=== PATIENT | male | born 1955 | race Caucasian/White ===

== ENCOUNTER 2017-10-12 17:21 | Inpatient (IN) | payer BC ==
[~2017-10-12] VITALS: Ht 185.4 cm; Wt 108.4 kg
[2017-10-12 17:33] VITALS: BP_SYST 130
[2017-10-12] MEDS ORDERED: ASPIRIN 81 MG TAB.CHEW PO ONE (18:00)
[2017-10-12 18:12] LABS: EOSINOPHILS # (AUTO) 0.2 K/uL (0.0-0.4); EOSINOPHILS % (AUTO) 3.8 % (0.0-4.0); HEMATOCRIT 41.7 % (36-54); LYMPHOCYTES # (AUTO) 1.9 K/uL (1.0-5.5); MEAN CORPUSCULAR HEMOGLOBIN 28 pg (27-31); MEAN CORPUSCULAR HGB CONC 31 % (32-36); MEAN CORPUSCULAR VOLUME 88 fL (79.0-98.0); MONOCYTES # (AUTO) 0.6 K/uL (0.0-1.0); MONOCYTES % (AUTO) 10.3 % (1.7-9.3); NEUTROPHILS % (AUTO) 54.7 % (40.0-70.0); PLATELET COUNT (AUTO) 230 K/uL (130-430); RED BLOOD CELL COUNT(AUTO) 4.72 MIL/uL (4.2-6.2); RED CELL DISTRIBUTION WIDTH 12.4 % (9.0-15.0)
[2017-10-12 18:13] LABS: BASOPHILS % (AUTO) 0.2 % (0.0-2.0); NEUTROPHILS # (AUTO) 3.3 K/uL (1.8-7.7)
[2017-10-12] MEDS ORDERED: NACL 0.9% 1,000 ML IV ONE (18:15)
[2017-10-12] MEDS ORDERED: MORPHINE 4 MG/ML INJ. SYRINGE IVP ONE (18:15)
[2017-10-12 18:21] LABS: ALBUMIN 3.8 g/dL (3.4-4.8); CALCIUM 9.5 mg/dL (8.4-11.0); CREATININE 1.27 mg/dL (0.55-1.30); POTASSIUM 4.2 mmol/L (3.5-5.1); TOTAL BILIRUBIN 0.4 mg/dL (0.0-1.0)
[2017-10-12] MEDS ORDERED: IOHEXOL 350 mgI/mL, 150 ML INFUS..BTL IV ONE (18:44)
[2017-10-12 18:48] LABS: CKMB RELATIVE INDEX 0.8 (0.0-2.9); CREATINE KINASE MB 2.5 ng/mL (0-3.6)
[2017-10-12 19:16] LABS: INR 0.9 (0.80-1.20); PROTHROMBIN TIME 9.6 SECS (9.5-12.5)
[2017-10-12] MEDS ORDERED: LEVO112T5 PO (19:19)
[2017-10-12] MEDS ORDERED: LOVI30 SQ (19:20)
[2017-10-12] MEDS ORDERED: ACETAMINOPHEN 325 MG TABLET PO PRN (21:30)
[2017-10-12] MEDS ORDERED: POTASSIUM CHLORIDE 20 MEQ TAB.PRT.SR PO PRN (21:30)
[2017-10-12] MEDS ORDERED: ZOLPIDEM TARTRATE 5 MG TABLET PO PRN (21:30)
[2017-10-12] MEDS ORDERED: *LOVENOX 1MG/KG Q12H/PHARMACY XX ONE (21:30)
[2017-10-12] MEDS ORDERED: MORPHINE 2 MG/ML INJ. SYRINGE IVP PRN ×2 (21:30)
[2017-10-12] MEDS ORDERED: LORazepam 2 MG/ML VIAL IVP PRN (21:30)
[2017-10-12] MEDS ORDERED: MUPIROCIN 2% TOPICAL OINTMENT 22 GM NS PRN (21:30)
[2017-10-12] MEDS ORDERED: DOCUSATE SODIUM 100 MG CAPSULE PO PRN (21:30)
[2017-10-12] MEDS ORDERED: MAGNESIUM SULFATE 50 ML IV PRN (21:30)
[2017-10-12 21:40] VITALS: BP_SYST 101
[2017-10-12] MEDS: NACL 0.9% 1,000 ML IV SCH (22:29)
[2017-10-12] MEDS ORDERED: MORPHINE 4 MG/ML INJ. SYRINGE IVP PRN (23:30)
[2017-10-12] MEDS: MORPHINE 4 MG/ML INJ. SYRINGE IVP PRN (23:52)
[2017-10-13] VITALS (7 sets, daily range): BP systolic 101–113
[2017-10-13] MEDS: NACL 0.9% 1,000 ML IV SCH (06:32)
[2017-10-13 06:42] LABS: CALCIUM 8.8 mg/dL (8.4-11.0); CREATININE 1.06 mg/dL (0.55-1.30); POTASSIUM 4.5 mmol/L (3.5-5.1)
[2017-10-13 07:41] LABS: BASOPHILS % (AUTO) 0.6 % (0.0-2.0); EOSINOPHILS # (AUTO) 0.2 K/uL (0.0-0.4); EOSINOPHILS % (AUTO) 4.3 % (0.0-4.0); HEMATOCRIT 38.8 % (36-54); HEMOGLOBIN 13.3 g/dL (14.0-18.0); LYMPHOCYTES # (AUTO) 1.5 K/uL (1.0-5.5); LYMPHOCYTES % (AUTO) 30.2 % (20.5-51.5); MEAN CORPUSCULAR HEMOGLOBIN 30 pg (27-31); MEAN CORPUSCULAR HGB CONC 34 % (32-36); MEAN CORPUSCULAR VOLUME 88 fL (79.0-98.0); MONOCYTES # (AUTO) 0.5 K/uL (0.0-1.0); MONOCYTES % (AUTO) 10.6 % (1.7-9.3); NEUTROPHILS # (AUTO) 2.6 K/uL (1.8-7.7); NEUTROPHILS % (AUTO) 54.3 % (40.0-70.0); PLATELET COUNT (AUTO) 213 K/uL (130-430); RED BLOOD CELL COUNT(AUTO) 4.39 MIL/uL (4.2-6.2); RED CELL DISTRIBUTION WIDTH 12.8 % (9.0-15.0); WHITE BLOOD COUNT (AUTO) 4.8 K/uL (4.8-10.8)
[2017-10-13] MEDS: ENOXAPARIN SODIUM 100 MG/ML SYRINGE SUBCUT SCH ×2 (09:38→20:40)
[2017-10-13] MEDS: oxyCODONE HCL 10 MG TAB.ER.12H PO SCH ×2 (09:38→20:40)
[2017-10-13] MEDS: LEVOTHYROXINE SODIUM 0.112 MG TABLET PO SCH (09:38)
[2017-10-13] MEDS: LEVOFLOXACIN 500 MG/D5W 100 ML IV SCH (10:32)
[2017-10-13] MEDS: ONDANSETRON HCL 4 MG/2 ML VIAL IVP PRN (20:40)
[2017-10-13] MEDS: MORPHINE 4 MG/ML INJ. SYRINGE IVP PRN (21:58)
[2017-10-14 07:06] LABS: BASOPHILS % (AUTO) 0.4 % (0.0-2.0); EOSINOPHILS # (AUTO) 0.3 K/uL (0.0-0.4); EOSINOPHILS % (AUTO) 3.7 % (0.0-4.0); HEMATOCRIT 40.1 % (36-54); HEMOGLOBIN 13.4 g/dL (14.0-18.0); LYMPHOCYTES # (AUTO) 1.6 K/uL (1.0-5.5); MEAN CORPUSCULAR HEMOGLOBIN 30 pg (27-31); MEAN CORPUSCULAR HGB CONC 34 % (32-36); MEAN CORPUSCULAR VOLUME 89 fL (79.0-98.0); MONOCYTES # (AUTO) 0.7 K/uL (0.0-1.0); MONOCYTES % (AUTO) 10.6 % (1.7-9.3); NEUTROPHILS # (AUTO) 4.2 K/uL (1.8-7.7); NEUTROPHILS % (AUTO) 61.3 % (40.0-70.0); PLATELET COUNT (AUTO) 240 K/uL (130-430); RED CELL DISTRIBUTION WIDTH 12.8 % (9.0-15.0); WHITE BLOOD COUNT (AUTO) 6.9 K/uL (4.8-10.8)
[2017-10-14 07:16] LABS: CALCIUM 9.6 mg/dL (8.4-11.0); CREATININE 1.15 mg/dL (0.55-1.30); POTASSIUM 5.4 mmol/L (3.5-5.1)
[2017-10-14 07:35] VITALS: BP_SYST 103
[2017-10-14] MEDS ORDERED: REGADENOSON 0.4 MG/5 ML SYRINGE IVP ONE (09:00)
[2017-10-14] MEDS ORDERED: ENOXAPARIN SODIUM 40 MG/0.4 ML SYRINGE SUBCUT SCH (09:00)
[2017-10-14] MEDS: LEVOTHYROXINE SODIUM 0.112 MG TABLET PO SCH (09:40)
[2017-10-14] MEDS: oxyCODONE HCL 10 MG TAB.ER.12H PO SCH (09:41)
[2017-10-14] MEDS: ONDANSETRON HCL 4 MG/2 ML VIAL IVP PRN (09:42)
[2017-10-14] MEDS: LEVOFLOXACIN 500 MG/D5W 100 ML IV SCH (09:47)
[2017-10-14] MEDS: MORPHINE 4 MG/ML INJ. SYRINGE IVP PRN (12:32)
[2017-10-14 13:03] VITALS: BP_SYST 99
[2017-10-14] MEDS ORDERED: LEVO500T20 PO (16:18)
[2017-10-14 16:41] VITALS: BP_SYST 93
[2017-10-14 17:14] VITALS: BP_SYST 104
== END 2017-10-14 18:35 | disposition home or self-care (01) | DRG 205 ==
LOC: SED 17:21 → STU 20:53
PROVIDERS: ADMIT General Practice; ATTEND General Practice
DX: M94.0 Chondrocostal junction syndrome [Tietze] (principal); J18.9 Pneumonia, unspecified organism; F11.20 Opioid dependence, uncomplicated; E66.01 Morbid (severe) obesity due to excess calories; E03.9 Hypothyroidism, unspecified; E78.5 Hyperlipidemia, unspecified; G89.4 Chronic pain syndrome; G47.33 Obstructive sleep apnea (adult) (pediatric); R91.8 Other nonspecific abnormal finding of lung field; Z98.84 Bariatric surgery status; Z86.718 Personal history of other venous thrombosis and embolism; Z79.899 Other long term (current) drug therapy; Z68.31 Body mass index [BMI] 31.0-31.9, adult
CPT/HCPCS: 36415; 71260-TC; 80048; 80053; 80061; 82550-TC; 82553-TC; 83735-TC; 84443-TC; 84484; 85025; 85610-TC; 85730-TC; 87081; 93005; 93017; 93306; 93970; 96361; 96374; 99285; A9500; J1650; J1956; J2270; J2405; J2785; J7030; Q9967

== ENCOUNTER 2018-01-08 19:02 | Emergency (ER) | payer BC ==
[~2018-01-08] VITALS: Ht 185.4 cm; Wt 102.1 kg
[~2018-01-08 19:02] MED LIST: LEVO112T5 PO; LEVO500T20 PO
[2018-01-08 19:10] VITALS: BP_SYST 129
[2018-01-08] MEDS ORDERED: NACL 0.9% 1,000 ML IV ONE (19:39)
[2018-01-08 20:09] LABS: BASOPHILS % (AUTO) 0.6 % (0.0-2.0); EOSINOPHILS # (AUTO) 0.1 K/uL (0.0-0.4); EOSINOPHILS % (AUTO) 1.4 % (0.0-4.0); HEMATOCRIT 40.5 % (36-54); HEMOGLOBIN 13.3 g/dL (14.0-18.0); LYMPHOCYTES # (AUTO) 1.8 K/uL (1.0-5.5); MEAN CORPUSCULAR HEMOGLOBIN 29 pg (27-31); MEAN CORPUSCULAR HGB CONC 33 % (32-36); MEAN CORPUSCULAR VOLUME 89 fL (79.0-98.0); MONOCYTES # (AUTO) 0.6 K/uL (0.0-1.0); MONOCYTES % (AUTO) 9.2 % (1.7-9.3); NEUTROPHILS # (AUTO) 3.8 K/uL (1.8-7.7); NEUTROPHILS % (AUTO) 59.8 % (40.0-70.0); PLATELET COUNT (AUTO) 196 K/uL (130-430); RED BLOOD CELL COUNT(AUTO) 4.53 MIL/uL (4.2-6.2); WHITE BLOOD COUNT (AUTO) 6.3 K/uL (4.8-10.8)
[2018-01-08 20:13] LABS: CALCIUM 9.5 mg/dL (8.4-11.0); CREATININE 1.03 mg/dL (0.55-1.30); POTASSIUM 5.1 mmol/L (3.5-5.1)
[2018-01-08 20:16] LABS: INR 0.9 (0.80-1.20); PROTHROMBIN TIME 9.6 SECS (9.5-12.5)
[2018-01-08 20:18] LABS: TOTAL BILIRUBIN 0.4 mg/dL (0.0-1.0)
[2018-01-08 20:50] LABS: BILIRUBIN,URINE NEGATIVE (NEGATIVE); BLOOD, URINE NEGATIVE (NEGATIVE); CLARITY/URINE CLEAR (CLEAR); COLOR,URINE YELLOW (YELLOW); GLUCOSE,URINE NEGATIVE (NEGATIVE); KETONES,URINE NEGATIVE (NEGATIVE); LEUKOCYTE ESTERASE ,URINE NEGATIVE (NEGATIVE); NITRITE, URINE NEGATIVE (NEGATIVE); PROTEIN URINE NEGATIVE (NEGATIVE); UROBILINOGEN,URINE 0.2 (0.2-1.0)
[2018-01-08] MEDS ORDERED: OXYC10TA71 PO (21:13)
[2018-01-08] MEDS ORDERED: LEVO125T PO (21:13)
[2018-01-08] MEDS ORDERED: IBUP-1480 PO (21:13)
[2018-01-08] MEDS ORDERED: MODA100T5 PO (21:13)
[2018-01-08 22:10] VITALS: BP_SYST 126
== END 2018-01-08 22:10 | disposition home or self-care (01) ==
LOC: SED 19:02
DX: S83.91XA Sprain of unspecified site of right knee, initial encounter (principal); R60.0 Localized edema; E03.9 Hypothyroidism, unspecified; Z86.718 Personal history of other venous thrombosis and embolism; Z90.49 Acquired absence of other specified parts of digestive tract; Z85.118 Personal history of other malignant neoplasm of bronchus and lung; Z79.899 Other long term (current) drug therapy; X58.XXXA Exposure to other specified factors, initial encounter; Y93.89 Activity, other specified; Y92.89 Other specified places as the place of occurrence of the external cause; Y99.8 Other external cause status
CPT/HCPCS: 29505; 36415; 73564; 80053; 81003; 85025; 85610; 85730; 93971; 99285; J7030

== ENCOUNTER 2021-08-07 20:05 | Inpatient (IN) | payer BC, SELFPAY ==
[~2021-08-07] VITALS: Ht 185.4 cm; Wt 76.2 kg
[~2021-08-07 20:05] MED LIST changes: +IBUP-1970 PO; +LEVO125T PO; -LEVO500T20 PO; +MODA100T53 PO; +OXYC10TA56 PO
[2021-08-07 20:13] VITALS: BP_SYST 89
[2021-08-07] MEDS ORDERED: NACL 0.9% 1,000 ML IV ONE (20:30)
[2021-08-07] MEDS ORDERED: ONDANSETRON HCL 4 MG/2 ML VIAL IVP ONE ×3 (20:30→23:00)
[2021-08-07] MEDS ORDERED: PANTOPRAZOLE SODIUM 40 MG/VIAL (PROTONIX) IVP ONE (20:30)
[2021-08-07] MEDS ORDERED: fentaNYL CITRATE/PF 100 MCG/2 ML AMP IVP ONE (20:30)
[2021-08-07 20:58] LABS: BASOPHILS # (AUTO) 0.1 K/uL (0.0-0.2); BASOPHILS % (AUTO) 1.3 % (0.0-2.0); EOSINOPHILS # (AUTO) 0.1 K/uL (0.0-0.4); EOSINOPHILS % (AUTO) 0.5 % (0.0-4.0); HEMATOCRIT 37.6 % (36-54); HEMOGLOBIN 12.4 g/dL (14.0-18.0); LYMPHOCYTES # (AUTO) 1.6 K/uL (1.0-5.5); LYMPHOCYTES % (AUTO) 14.5 % (20.5-51.5); MEAN CORPUSCULAR HEMOGLOBIN 30 pg (27-31); MEAN CORPUSCULAR HGB CONC 33 % (32-36); MEAN CORPUSCULAR VOLUME 92 fL (79.0-98.0); MONOCYTES # (AUTO) 0.5 K/uL (0.0-1.0); MONOCYTES % (AUTO) 4.3 % (1.7-9.3); NEUTROPHILS # (AUTO) 8.7 K/uL (1.8-7.7); NEUTROPHILS % (AUTO) 79.4 % (40.0-70.0); PLATELET COUNT (AUTO) 189 K/uL (130-430); RED BLOOD CELL COUNT(AUTO) 4.09 MIL/uL (4.2-6.2); WHITE BLOOD COUNT (AUTO) 10.9 K/uL (4.8-10.8)
[2021-08-07 21:13] LABS: CALCIUM 8.7 mg/dL (8.4-11.0); CREATININE 0.95 mg/dL (0.55-1.30); POTASSIUM 3.8 mmol/L (3.5-5.1)
[2021-08-07 21:24] LABS: ALBUMIN 3.6 g/dL (3.4-4.8); TOTAL BILIRUBIN 0.5 mg/dL (0.0-1.0)
[2021-08-07] MEDS ORDERED: MORPHINE 4 MG INJ. 4 MG/ML VIAL IVP ONE (21:45)
[2021-08-07] MEDS ORDERED: LORazepam 2 MG/ML VIAL IVP ONE (22:30)
[2021-08-07] MEDS ORDERED: PROCHLORPERAZINE EDISYLATE 10 MG/2 ML VIAL IVP ONE (23:00)
[2021-08-08] VITALS (7 sets, daily range): BP systolic 105–120
[2021-08-08] MEDS: D5/0.45 NS 1,000 ML IV SCH ×4 (01:00→21:40)
[2021-08-08] MEDS ORDERED: ONDANSETRON HCL 4 MG/2 ML VIAL IM PRN (05:45)
[2021-08-08] MEDS ORDERED: MORPHINE 2 MG/ML INJ. SYRINGE IVP PRN (05:45)
[2021-08-08] MEDS ORDERED: MORPHINE 2 MG/ML INJ. SYRINGE ONE (06:30)
[2021-08-08] MEDS ORDERED: ONDANSETRON HCL 4 MG/2 ML VIAL IVP PRN (07:00)
[2021-08-08 07:01] LABS: BASOPHILS % (AUTO) 0.2 % (0.0-2.0); HEMATOCRIT 38.4 % (36-54); HEMOGLOBIN 12.7 g/dL (14.0-18.0); LYMPHOCYTES # (AUTO) 0.5 K/uL (1.0-5.5); LYMPHOCYTES % (AUTO) 4.9 % (20.5-51.5); MEAN CORPUSCULAR HEMOGLOBIN 31 pg (27-31); MEAN CORPUSCULAR HGB CONC 33 % (32-36); MEAN CORPUSCULAR VOLUME 93 fL (79.0-98.0); MONOCYTES # (AUTO) 0.2 K/uL (0.0-1.0); MONOCYTES % (AUTO) 2.5 % (1.7-9.3); NEUTROPHILS # (AUTO) 8.6 K/uL (1.8-7.7); NEUTROPHILS % (AUTO) 92.4 % (40.0-70.0); PLATELET COUNT (AUTO) 182 K/uL (130-430); RED BLOOD CELL COUNT(AUTO) 4.15 MIL/uL (4.2-6.2); WHITE BLOOD COUNT (AUTO) 9.3 K/uL (4.8-10.8)
[2021-08-08 07:06] LABS: CALCIUM 8.8 mg/dL (8.4-11.0); CREATININE 0.94 mg/dL (0.55-1.30); POTASSIUM 3.8 mmol/L (3.5-5.1)
[2021-08-08 07:12] LABS: ALBUMIN 3.6 g/dL (3.4-4.8); TOTAL BILIRUBIN 0.5 mg/dL (0.0-1.0)
[2021-08-08] MEDS ORDERED: ACETAMINOPHEN 325 MG TABLET PO PRN (09:30)
[2021-08-08] MEDS ORDERED: HYDROmorphone 1 MG/ML INJ. CARTRIDGE IVP PRN (09:30)
[2021-08-08] MEDS: HYDROmorphone 2 MG/ML VIAL IVP PRN ×4 (11:17→23:49)
[2021-08-08] MEDS ORDERED: GASTROGRAFIN 120 ML ONE (14:12)
[2021-08-08] MEDS: ONDANSETRON HCL 4 MG/2 ML VIAL IVP PRN ×2 (15:36→23:53)
[2021-08-08] MEDS: METOCLOPRAMIDE HCL 10 MG/2 ML VIAL IVP PRN (19:55)
[2021-08-09] VITALS (9 sets, daily range): BP systolic 102–141
[2021-08-09] MEDS: HYDROmorphone 2 MG/ML VIAL IVP PRN ×3 (04:03→21:45)
[2021-08-09] MEDS: METOCLOPRAMIDE HCL 10 MG/2 ML VIAL IVP PRN (04:13)
[2021-08-09 07:13] LABS: BASOPHILS % (AUTO) 0.2 % (0.0-2.0); HEMATOCRIT 41.3 % (36-54); HEMOGLOBIN 13.6 g/dL (14.0-18.0); LYMPHOCYTES % (AUTO) 7.9 % (20.5-51.5); MEAN CORPUSCULAR HEMOGLOBIN 31 pg (27-31); MEAN CORPUSCULAR HGB CONC 33 % (32-36); MEAN CORPUSCULAR VOLUME 92 fL (79.0-98.0); MONOCYTES # (AUTO) 0.6 K/uL (0.0-1.0); MONOCYTES % (AUTO) 4.7 % (1.7-9.3); NEUTROPHILS # (AUTO) 10.9 K/uL (1.8-7.7); NEUTROPHILS % (AUTO) 87.2 % (40.0-70.0); PLATELET COUNT (AUTO) 203 K/uL (130-430); RED BLOOD CELL COUNT(AUTO) 4.47 MIL/uL (4.2-6.2); RED CELL DISTRIBUTION WIDTH 13.8 % (9.0-15.0); WHITE BLOOD COUNT (AUTO) 12.5 K/uL (4.8-10.8)
[2021-08-09 07:44] LABS: ALBUMIN 3.6 g/dL (3.4-4.8); CALCIUM 9.2 mg/dL (8.4-11.0); CREATININE 1.02 mg/dL (0.55-1.30); PHOSPHORUS 4.6 mg/dL (2.7-4.5); TOTAL BILIRUBIN 0.1 mg/dL (0.0-1.0)
[2021-08-09] MEDS: D5/0.45 NS 1,000 ML IV SCH (08:51)
[2021-08-09] MEDS ORDERED: NS 500 ML IV ONE (10:45)
[2021-08-09] MEDS: HYDROmorphone 1 MG/ML INJ. CARTRIDGE IVP PRN ×3 (12:49→20:21)
[2021-08-09 15:29] LABS: BILIRUBIN,URINE NEGATIVE (NEGATIVE); BLOOD, URINE NEGATIVE (NEGATIVE); CLARITY/URINE CLEAR (CLEAR); GLUCOSE,URINE NEGATIVE (NEGATIVE); KETONES,URINE NEGATIVE (NEGATIVE); NITRITE, URINE NEGATIVE (NEGATIVE); PROTEIN URINE TRACE (NEGATIVE); UROBILINOGEN,URINE 0.2 (0.2-1.0)
[2021-08-09 15:40] LABS: COLOR,URINE AMBER (YELLOW); LEUKOCYTE ESTERASE ,URINE TRACE (NEGATIVE)
[2021-08-09 15:41] LABS: BACTERIA,URINE FEW /HPF (None Seen); RBC,URINE NONE SEEN /HPF (0-3)
[2021-08-09 15:42] LABS: MUCUS,URINE 1+ /LPF (None Seen)
[2021-08-09] MEDS ORDERED: PROPOFOL 200MG/ 20ML VIAL (DIPRIVAN) IV ONE ×2 (17:10→21:45)
[2021-08-09] MEDS ORDERED: NS 1000 ML IV.SOLN IV ONE (17:10)
[2021-08-09] MEDS ORDERED: MIDAZOLAM HCL 5 MG/5 ML VIAL ONE (17:10)
[2021-08-09] MEDS ORDERED: fentaNYL CITRATE 250 MCG/5 ML AMP ONE (17:10)
[2021-08-09] MEDS ORDERED: ROCURONIUM BROMIDE 10 MG/ML (ZEMURON) ONE (17:10)
[2021-08-09] MEDS ORDERED: CEFAZOLIN 2 GM IVPB PREMIX 50 ML IV ONE (17:10)
[2021-08-09] MEDS ORDERED: NS IRRIG SOLN 1000 ML IR ONE (17:10)
[2021-08-09] MEDS ORDERED: SEVOFLURANE 15 MIN GAS INH ONE (17:10)
[2021-08-09] MEDS ORDERED: NALOXONE HCL 0.4 MG/ML AMP (NARCAN) IVP PRN (18:45)
[2021-08-09] MEDS ORDERED: ONDANSETRON HCL 4 MG/2 ML VIAL IVP PRN (18:45)
[2021-08-09] MEDS ORDERED: METOCLOPRAMIDE HCL 10 MG/2 ML VIAL IVP PRN (18:45)
[2021-08-09] MEDS ORDERED: HYDROmorphone 2 MG/ML VIAL ONE (20:10)
[2021-08-09] MEDS ORDERED: PROPOFOL DRIP 100 ML IV ONE ×2 (20:26→23:12)
[2021-08-09] MEDS: ONDANSETRON HCL 4 MG/2 ML VIAL IVP PRN (21:18)
[2021-08-09] MEDS ORDERED: PIPERACILLIN/TAZOBACTAM 4.5 GM/VIAL (ZOSYN) IV ONE (21:24)
[2021-08-09] MEDS: PIPERACILLIN/TAZO 4.5GM/DEX-IS 100 ML IV SCH (21:50)
[2021-08-10] VITALS (21 sets, daily range): BP systolic 90–110
[2021-08-10] MEDS: D5/0.45 NS 1,000 ML IV SCH ×4 (00:17→23:57)
[2021-08-10] MEDS: PROPOFOL DRIP 100 ML IV PRN ×2 (00:19→04:54)
[2021-08-10] MEDS: HYDROmorphone 1 MG/ML INJ. CARTRIDGE IVP PRN ×3 (02:40→14:04)
[2021-08-10] MEDS: PIPERACILLIN/TAZO 4.5GM/DEX-IS 100 ML IV SCH ×3 (06:24→21:02)
[2021-08-10] MEDS: HYDROmorphone 2 MG/ML VIAL IVP PRN ×5 (06:25→20:55)
[2021-08-10 06:33] LABS: BASOPHILS % (AUTO) 0.1 % (0.0-2.0); EOSINOPHILS % (AUTO) 0.1 % (0.0-4.0); HEMATOCRIT 37.7 % (36-54); HEMOGLOBIN 12.5 g/dL (14.0-18.0); LYMPHOCYTES # (AUTO) 0.9 K/uL (1.0-5.5); LYMPHOCYTES % (AUTO) 8.5 % (20.5-51.5); MEAN CORPUSCULAR HEMOGLOBIN 31 pg (27-31); MEAN CORPUSCULAR HGB CONC 33 % (32-36); MEAN CORPUSCULAR VOLUME 93 fL (79.0-98.0); MONOCYTES # (AUTO) 1.2 K/uL (0.0-1.0); MONOCYTES % (AUTO) 11.8 % (1.7-9.3); NEUTROPHILS % (AUTO) 79.5 % (40.0-70.0); PLATELET COUNT (AUTO) 159 K/uL (130-430); RED BLOOD CELL COUNT(AUTO) 4.07 MIL/uL (4.2-6.2); RED CELL DISTRIBUTION WIDTH 14.2 % (9.0-15.0)
[2021-08-10 06:41] LABS: CALCIUM 7.5 mg/dL (8.4-11.0); CREATININE 0.7 mg/dL (0.55-1.30); POTASSIUM 4.1 mmol/L (3.5-5.1)
[2021-08-10 15:52] LABS: PROTHROMBIN TIME 10.1 SECS (9.5-12.5)
[2021-08-10] MEDS: ENOXAPARIN SODIUM 30 MG/0.3 ML SYRINGE SUBCUT SCH (20:56)
[2021-08-11] VITALS (15 sets, daily range): BP systolic 86–109
[2021-08-11] MEDS: HYDROmorphone 2 MG/ML VIAL IVP PRN ×7 (03:56→23:02)
[2021-08-11] MEDS: PIPERACILLIN/TAZO 4.5GM/DEX-IS 100 ML IV SCH ×3 (06:08→21:33)
[2021-08-11 06:34] LABS: BASOPHILS % (AUTO) 0.4 % (0.0-2.0); EOSINOPHILS # (AUTO) 0.1 K/uL (0.0-0.4); HEMOGLOBIN 11.4 g/dL (14.0-18.0); LYMPHOCYTES # (AUTO) 1.2 K/uL (1.0-5.5); LYMPHOCYTES % (AUTO) 13.6 % (20.5-51.5); MEAN CORPUSCULAR HEMOGLOBIN 31 pg (27-31); MEAN CORPUSCULAR HGB CONC 33 % (32-36); MEAN CORPUSCULAR VOLUME 93 fL (79.0-98.0); NEUTROPHILS # (AUTO) 6.2 K/uL (1.8-7.7); PLATELET COUNT (AUTO) 130 K/uL (130-430); RED BLOOD CELL COUNT(AUTO) 3.67 MIL/uL (4.2-6.2); RED CELL DISTRIBUTION WIDTH 13.9 % (9.0-15.0); WHITE BLOOD COUNT (AUTO) 8.5 K/uL (4.8-10.8)
[2021-08-11 07:04] LABS: CALCIUM 7.7 mg/dL (8.4-11.0); CREATININE 0.65 mg/dL (0.55-1.30); POTASSIUM 3.9 mmol/L (3.5-5.1)
[2021-08-11 07:25] LABS: C-REACTIVE PROTEIN QUANT 15.1 mg/dL (0-0.5)
[2021-08-11] MEDS ORDERED: IPRATROPIUM/ALBUTEROL SULFATE 3 ML AMPUL.NEB (DUONEB) ONE ×2 (07:53→11:45)
[2021-08-11] MEDS ORDERED: *PPN PER PHARMACY XX PRN (08:00)
[2021-08-11 08:59] LABS: ERYTHROCYTE SEDIMENTATION RATE 18 MM/HR (0-15)
[2021-08-11 10:14] LABS: ALBUMIN 2.2 g/dL (3.4-4.8); BILIRUBIN,DIRECT 0.4 mg/dL (0.0-0.3); TOTAL BILIRUBIN 0.6 mg/dL (0.0-1.0)
[2021-08-11] MEDS: D5/0.45 NS 1,000 ML IV SCH ×2 (12:51→21:34)
[2021-08-11] MEDS: IPRATROPIUM/ALBUTEROL SULFATE 3 ML AMPUL.NEB (DUONEB) INH SCH ×2 (19:44→22:11)
[2021-08-11] MEDS ORDERED: [UNRECOGNIZED DRUG - OTHER] IV SCH ×7 (21:00)
[2021-08-11] MEDS ORDERED: POTASSIUM CHLORIDE IV SCH ×7 (21:00)
[2021-08-11] MEDS ORDERED: TPN PERIPHERAL IV SCH ×7 (21:00)
[2021-08-11] MEDS ORDERED: SODIUM CHLORIDE IV SCH ×7 (21:00)
[2021-08-11] MEDS: ENOXAPARIN SODIUM 30 MG/0.3 ML SYRINGE SUBCUT SCH (21:44)
[2021-08-12 00:51] VITALS: BP_SYST 105
[2021-08-12] MEDS: HYDROmorphone 2 MG/ML VIAL IVP PRN ×7 (02:24→18:36)
[2021-08-12] MEDS: IPRATROPIUM/ALBUTEROL SULFATE 3 ML AMPUL.NEB (DUONEB) INH SCH ×6 (03:00→23:44)
[2021-08-12] MEDS: PIPERACILLIN/TAZO 4.5GM/DEX-IS 100 ML IV SCH ×3 (06:30→21:31)
[2021-08-12 06:35] LABS: BASOPHILS % (AUTO) 0.3 % (0.0-2.0); EOSINOPHILS # (AUTO) 0.1 K/uL (0.0-0.4); EOSINOPHILS % (AUTO) 2.4 % (0.0-4.0); HEMATOCRIT 31.5 % (36-54); HEMOGLOBIN 10.5 g/dL (14.0-18.0); LYMPHOCYTES # (AUTO) 0.8 K/uL (1.0-5.5); MEAN CORPUSCULAR HEMOGLOBIN 31 pg (27-31); MEAN CORPUSCULAR HGB CONC 33 % (32-36); MEAN CORPUSCULAR VOLUME 92 fL (79.0-98.0); MONOCYTES # (AUTO) 0.6 K/uL (0.0-1.0); MONOCYTES % (AUTO) 9.8 % (1.7-9.3); NEUTROPHILS # (AUTO) 4.4 K/uL (1.8-7.7); NEUTROPHILS % (AUTO) 73.5 % (40.0-70.0); PLATELET COUNT (AUTO) 136 K/uL (130-430); RED BLOOD CELL COUNT(AUTO) 3.41 MIL/uL (4.2-6.2); RED CELL DISTRIBUTION WIDTH 13.8 % (9.0-15.0); WHITE BLOOD COUNT (AUTO) 5.9 K/uL (4.8-10.8)
[2021-08-12 07:26] LABS: INR 0.9 (0.80-1.20); PROTHROMBIN TIME 9.1 SECS (9.5-12.5)
[2021-08-12 07:41] LABS: C-REACTIVE PROTEIN QUANT 9.3 mg/dL (0-0.5); CALCIUM 7.1 mg/dL (8.4-11.0); CREATININE 0.57 mg/dL (0.55-1.30); PHOSPHORUS 2.6 mg/dL (2.7-4.5); POTASSIUM 3.5 mmol/L (3.5-5.1); TOTAL BILIRUBIN 0.5 mg/dL (0.0-1.0)
[2021-08-12 07:51] LABS: BILIRUBIN,URINE NEGATIVE (NEGATIVE); BLOOD, URINE 3+ (NEGATIVE); GLUCOSE,URINE NEGATIVE (NEGATIVE); KETONES,URINE TRACE (NEGATIVE); LEUKOCYTE ESTERASE ,URINE NEGATIVE (NEGATIVE); NITRITE, URINE NEGATIVE (NEGATIVE); PROTEIN URINE 1+ (NEGATIVE)
[2021-08-12 07:58] LABS: CLARITY/URINE SLIGHTLY HAZY (CLEAR); COLOR,URINE AMBER (YELLOW)
[2021-08-12 08:00] VITALS: BP_SYST 116
[2021-08-12 08:51] LABS: BACTERIA,URINE FEW /HPF (None Seen); WBC,URINE 0-3 /HPF (0-3)
[2021-08-12 09:25] LABS: ERYTHROCYTE SEDIMENTATION RATE 18 MM/HR (0-15)
[2021-08-12 11:33] VITALS: BP_SYST 110
[2021-08-12] MEDS: D5/0.45 NS 1,000 ML IV SCH (12:29)
[2021-08-12] MEDS: METOCLOPRAMIDE HCL 10 MG/2 ML VIAL IVP PRN (12:31)
[2021-08-12 16:35] VITALS: BP_SYST 110
[2021-08-12 16:45] VITALS: BP_SYST 112
[2021-08-12 20:00] VITALS: BP_SYST 100
[2021-08-12] MEDS ORDERED: [UNRECOGNIZED DRUG - OTHER] IV SCH ×9 (21:00)
[2021-08-12] MEDS ORDERED: POTASSIUM CHLORIDE IV SCH ×9 (21:00)
[2021-08-12] MEDS ORDERED: TPN PERIPHERAL IV SCH ×9 (21:00)
[2021-08-12] MEDS ORDERED: SODIUM CHLORIDE IV SCH ×9 (21:00)
[2021-08-12] MEDS: ENOXAPARIN SODIUM 30 MG/0.3 ML SYRINGE SUBCUT SCH (21:28)
[2021-08-12] MEDS: HYDROmorphone 1 MG/ML INJ. CARTRIDGE IVP PRN (21:31)
[2021-08-13] VITALS: BP_SYST 109
[2021-08-13] MEDS: HYDROmorphone 2 MG/ML VIAL IVP PRN ×10 (00:05→23:44)
[2021-08-13] MEDS: IPRATROPIUM/ALBUTEROL SULFATE 3 ML AMPUL.NEB (DUONEB) INH SCH ×6 (03:00→23:00)
[2021-08-13] MEDS: D5/0.45 NS 1,000 ML IV SCH ×2 (06:44→23:49)
[2021-08-13] MEDS: PIPERACILLIN/TAZO 4.5GM/DEX-IS 100 ML IV SCH ×3 (06:44→22:32)
[2021-08-13 08:00] VITALS: BP_SYST 114
[2021-08-13 08:30] LABS: ALBUMIN 2.3 g/dL (3.4-4.8); CALCIUM 7.4 mg/dL (8.4-11.0); CREATININE 0.62 mg/dL (0.55-1.30); PHOSPHORUS 3.4 mg/dL (2.7-4.5); POTASSIUM 3.9 mmol/L (3.5-5.1); TOTAL BILIRUBIN 0.3 mg/dL (0.0-1.0)
[2021-08-13 12:00] VITALS: BP_SYST 113
[2021-08-13 16:00] VITALS: BP_SYST 113
[2021-08-13 20:00] VITALS: BP_SYST 120; BP_SYST 126
[2021-08-13] MEDS ORDERED: [UNRECOGNIZED DRUG - OTHER] IV SCH ×9 (21:00)
[2021-08-13] MEDS ORDERED: TPN PERIPHERAL IV SCH ×9 (21:00)
[2021-08-13] MEDS ORDERED: SODIUM CHLORIDE IV SCH ×9 (21:00)
[2021-08-13] MEDS ORDERED: POTASSIUM CHLORIDE IV SCH ×9 (21:00)
[2021-08-13] MEDS: ENOXAPARIN SODIUM 30 MG/0.3 ML SYRINGE SUBCUT SCH (22:31)
[2021-08-13] MEDS: FAT EMULSIONS 250 ML IV SCH (23:53)
[2021-08-14] VITALS: BP_SYST 120
[2021-08-14] MEDS: IPRATROPIUM/ALBUTEROL SULFATE 3 ML AMPUL.NEB (DUONEB) INH SCH ×6 (03:00→23:40)
[2021-08-14] MEDS: HYDROmorphone 2 MG/ML VIAL IVP PRN ×4 (03:06→14:23)
[2021-08-14] MEDS: PIPERACILLIN/TAZO 4.5GM/DEX-IS 100 ML IV SCH ×3 (06:12→21:14)
[2021-08-14 07:19] LABS: ALBUMIN 2.2 g/dL (3.4-4.8); CALCIUM 7.6 mg/dL (8.4-11.0); CREATININE 0.68 mg/dL (0.55-1.30); PHOSPHORUS 3.6 mg/dL (2.7-4.5); POTASSIUM 3.5 mmol/L (3.5-5.1); TOTAL BILIRUBIN 0.1 mg/dL (0.0-1.0)
[2021-08-14 08:00] VITALS: BP_SYST 103
[2021-08-14] MEDS: ONDANSETRON HCL 4 MG/2 ML VIAL IVP PRN ×2 (08:52→14:23)
[2021-08-14 12:01] VITALS: BP_SYST 94
[2021-08-14] MEDS: D5/0.45 NS 1,000 ML IV SCH (15:58)
[2021-08-14 17:01] VITALS: BP_SYST 96
[2021-08-14] MEDS: ENOXAPARIN SODIUM 30 MG/0.3 ML SYRINGE SUBCUT SCH (20:15)
[2021-08-14] MEDS: HYDROmorphone 1 MG/ML INJ. CARTRIDGE IVP PRN (20:16)
[2021-08-14] MEDS: FAT EMULSIONS 250 ML IV SCH (20:59)
[2021-08-14] MEDS ORDERED: POTASSIUM CHLORIDE IV SCH ×9 (21:00)
[2021-08-14] MEDS ORDERED: [UNRECOGNIZED DRUG - OTHER] IV SCH ×9 (21:00)
[2021-08-14] MEDS ORDERED: TPN PERIPHERAL IV SCH ×9 (21:00)
[2021-08-14] MEDS ORDERED: SODIUM CHLORIDE IV SCH ×9 (21:00)
[2021-08-14 22:00] VITALS: BP_SYST 106
[2021-08-15] MEDS: HYDROmorphone 1 MG/ML INJ. CARTRIDGE IVP PRN ×5 (00:04→18:42)
[2021-08-15 00:30] VITALS: BP_SYST 109
[2021-08-15] MEDS: IPRATROPIUM/ALBUTEROL SULFATE 3 ML AMPUL.NEB (DUONEB) INH SCH ×3 (03:00→11:08)
[2021-08-15] MEDS: PIPERACILLIN/TAZO 4.5GM/DEX-IS 100 ML IV SCH ×3 (05:25→21:50)
[2021-08-15 07:31] LABS: ALBUMIN 2.2 g/dL (3.4-4.8); CALCIUM 7.5 mg/dL (8.4-11.0); CREATININE 0.72 mg/dL (0.55-1.30); PHOSPHORUS 3.6 mg/dL (2.7-4.5); POTASSIUM 3.7 mmol/L (3.5-5.1); TOTAL BILIRUBIN 0.3 mg/dL (0.0-1.0)
[2021-08-15] MEDS: ONDANSETRON HCL 4 MG/2 ML VIAL IVP PRN (07:56)
[2021-08-15 08:30] VITALS: BP_SYST 94
[2021-08-15] MEDS: D5/0.45 NS 1,000 ML IV SCH (09:58)
[2021-08-15] MEDS: HYDROmorphone 2 MG/ML VIAL IVP PRN ×3 (10:15→21:43)
[2021-08-15 12:02] VITALS: BP_SYST 97
[2021-08-15 17:19] VITALS: BP_SYST 98
[2021-08-15] MEDS ORDERED: TPN PERIPHERAL IV SCH ×9 (21:00)
[2021-08-15] MEDS ORDERED: [UNRECOGNIZED DRUG - OTHER] IV SCH ×9 (21:00)
[2021-08-15] MEDS ORDERED: SODIUM CHLORIDE IV SCH ×9 (21:00)
[2021-08-15] MEDS ORDERED: POTASSIUM CHLORIDE IV SCH ×9 (21:00)
[2021-08-15 21:30] VITALS: BP_SYST 101
[2021-08-15] MEDS: ENOXAPARIN SODIUM 30 MG/0.3 ML SYRINGE SUBCUT SCH (21:47)
[2021-08-15] MEDS: FAT EMULSIONS 250 ML IV SCH (22:13)
[2021-08-16 00:23] VITALS: BP_SYST 87
[2021-08-16] MEDS: HYDROmorphone 1 MG/ML INJ. CARTRIDGE IVP PRN ×4 (00:42→18:50)
[2021-08-16] MEDS: D5/0.45 NS 1,000 ML IV SCH ×2 (02:38→21:49)
[2021-08-16] MEDS: HYDROmorphone 2 MG/ML VIAL IVP PRN ×4 (02:43→21:42)
[2021-08-16] MEDS: IPRATROPIUM/ALBUTEROL SULFATE 3 ML AMPUL.NEB (DUONEB) INH SCH ×6 (03:00→16:03)
[2021-08-16] MEDS: PIPERACILLIN/TAZO 4.5GM/DEX-IS 100 ML IV SCH ×3 (06:26→21:48)
[2021-08-16 07:15] LABS: BASOPHILS % (AUTO) 0.7 % (0.0-2.0); EOSINOPHILS # (AUTO) 0.2 K/uL (0.0-0.4); HEMATOCRIT 32.9 % (36-54); LYMPHOCYTES # (AUTO) 0.9 K/uL (1.0-5.5); LYMPHOCYTES % (AUTO) 14.8 % (20.5-51.5); MEAN CORPUSCULAR HEMOGLOBIN 31 pg (27-31); MEAN CORPUSCULAR HGB CONC 33 % (32-36); MEAN CORPUSCULAR VOLUME 92 fL (79.0-98.0); MONOCYTES # (AUTO) 0.7 K/uL (0.0-1.0); MONOCYTES % (AUTO) 11.9 % (1.7-9.3); NEUTROPHILS # (AUTO) 4.1 K/uL (1.8-7.7); NEUTROPHILS % (AUTO) 69.6 % (40.0-70.0); PLATELET COUNT (AUTO) 204 K/uL (130-430); RED BLOOD CELL COUNT(AUTO) 3.57 MIL/uL (4.2-6.2); RED CELL DISTRIBUTION WIDTH 13.5 % (9.0-15.0); WHITE BLOOD COUNT (AUTO) 5.9 K/uL (4.8-10.8)
[2021-08-16 07:55] LABS: ALBUMIN 2.2 g/dL (3.4-4.8); CALCIUM 7.4 mg/dL (8.4-11.0); CREATININE 0.71 mg/dL (0.55-1.30); PHOSPHORUS 3.4 mg/dL (2.7-4.5); TOTAL BILIRUBIN 0.2 mg/dL (0.0-1.0)
[2021-08-16 08:45] VITALS: BP_SYST 94
[2021-08-16 11:47] VITALS: BP_SYST 101
[2021-08-16 16:09] VITALS: BP_SYST 107
[2021-08-16] MEDS ORDERED: TPN PERIPHERAL IV SCH ×9 (21:00)
[2021-08-16] MEDS ORDERED: [UNRECOGNIZED DRUG - OTHER] IV SCH ×9 (21:00)
[2021-08-16] MEDS ORDERED: SODIUM CHLORIDE IV SCH ×9 (21:00)
[2021-08-16] MEDS ORDERED: POTASSIUM CHLORIDE IV SCH ×9 (21:00)
[2021-08-16] MEDS: FAT EMULSIONS 250 ML IV SCH (21:43)
[2021-08-16] MEDS: ONDANSETRON HCL 4 MG/2 ML VIAL IVP PRN (21:44)
[2021-08-16] MEDS: ENOXAPARIN SODIUM 30 MG/0.3 ML SYRINGE SUBCUT SCH (21:47)
[2021-08-16 22:30] VITALS: BP_SYST 113
[2021-08-17] MEDS: IPRATROPIUM/ALBUTEROL SULFATE 3 ML AMPUL.NEB (DUONEB) INH SCH ×7 (00:14→20:03)
[2021-08-17] MEDS: HYDROmorphone 1 MG/ML INJ. CARTRIDGE IVP PRN ×2 (01:08→22:39)
[2021-08-17 01:12] VITALS: BP_SYST 115
[2021-08-17] MEDS: PIPERACILLIN/TAZO 4.5GM/DEX-IS 100 ML IV SCH ×3 (06:22→22:49)
[2021-08-17] MEDS: HYDROmorphone 2 MG/ML VIAL IVP PRN ×5 (06:26→18:20)
[2021-08-17] MEDS: ONDANSETRON HCL 4 MG/2 ML VIAL IVP PRN (06:36)
[2021-08-17 07:46] LABS: ALBUMIN 2.4 g/dL (3.4-4.8); CALCIUM 8.1 mg/dL (8.4-11.0); CREATININE 0.78 mg/dL (0.55-1.30); PHOSPHORUS 3.5 mg/dL (2.7-4.5); POTASSIUM 4.9 mmol/L (3.5-5.1); TOTAL BILIRUBIN 0.1 mg/dL (0.0-1.0)
[2021-08-17 08:46] VITALS: BP_SYST 108
[2021-08-17] MEDS ORDERED: MINERAL OIL 133 ML ENEMA RC ONE (10:30)
[2021-08-17] MEDS ORDERED: MINERAL OIL 30 ML UDC PO ONE (10:30)
[2021-08-17] MEDS: METOCLOPRAMIDE HCL 10 MG/2 ML VIAL IVP PRN (11:30)
[2021-08-17 12:00] VITALS: BP_SYST 108
[2021-08-17 13:30] VITALS: BP_SYST 108
[2021-08-17] MEDS: D5/0.45 NS 1,000 ML IV SCH (15:01)
[2021-08-17 17:19] VITALS: BP_SYST 106
[2021-08-17 20:00] VITALS: BP_SYST 110
[2021-08-17] MEDS: FAT EMULSIONS 250 ML IV SCH (20:50)
[2021-08-17] MEDS: ENOXAPARIN SODIUM 30 MG/0.3 ML SYRINGE SUBCUT SCH (20:51)
[2021-08-17] MEDS ORDERED: TPN PERIPHERAL IV SCH ×8 (21:00)
[2021-08-17] MEDS ORDERED: SODIUM CHLORIDE IV SCH ×8 (21:00)
[2021-08-17] MEDS ORDERED: [UNRECOGNIZED DRUG - OTHER] IV SCH ×8 (21:00)
[2021-08-17] MEDS ORDERED: SODIUM PHOS IV SCH ×8 (21:00)
[2021-08-18] VITALS (7 sets, daily range): BP systolic 95–111
[2021-08-18] MEDS: IPRATROPIUM/ALBUTEROL SULFATE 3 ML AMPUL.NEB (DUONEB) INH SCH ×7 (00:08→23:22)
[2021-08-18] MEDS: HYDROmorphone 2 MG/ML VIAL IVP PRN ×7 (00:18→20:42)
[2021-08-18] MEDS: D5/0.45 NS 1,000 ML IV SCH ×2 (03:25→19:40)
[2021-08-18] MEDS: PIPERACILLIN/TAZO 4.5GM/DEX-IS 100 ML IV SCH ×3 (05:55→22:16)
[2021-08-18 07:41] LABS: ALBUMIN 2.2 g/dL (3.4-4.8); CALCIUM 7.6 mg/dL (8.4-11.0); CREATININE 0.72 mg/dL (0.55-1.30); PHOSPHORUS 3.3 mg/dL (2.7-4.5); TOTAL BILIRUBIN 0.1 mg/dL (0.0-1.0)
[2021-08-18] MEDS: METOCLOPRAMIDE HCL 10 MG/2 ML VIAL IVP PRN ×2 (08:20→15:12)
[2021-08-18] MEDS ORDERED: FUROSEMIDE 20 MG/2 ML VIAL IVP ONE (11:15)
[2021-08-18 13:46] LABS: BASOPHILS # (AUTO) 0.1 K/uL (0.0-0.2); BASOPHILS % (AUTO) 1.1 % (0.0-2.0); EOSINOPHILS # (AUTO) 0.2 K/uL (0.0-0.4); EOSINOPHILS % (AUTO) 2.9 % (0.0-4.0); HEMATOCRIT 34.3 % (36-54); HEMOGLOBIN 11.3 g/dL (14.0-18.0); LYMPHOCYTES # (AUTO) 1.2 K/uL (1.0-5.5); LYMPHOCYTES % (AUTO) 22.6 % (20.5-51.5); MEAN CORPUSCULAR HEMOGLOBIN 30 pg (27-31); MEAN CORPUSCULAR HGB CONC 33 % (32-36); MEAN CORPUSCULAR VOLUME 93 fL (79.0-98.0); MONOCYTES # (AUTO) 0.8 K/uL (0.0-1.0); MONOCYTES % (AUTO) 14.3 % (1.7-9.3); NEUTROPHILS # (AUTO) 3.1 K/uL (1.8-7.7); NEUTROPHILS % (AUTO) 59.1 % (40.0-70.0); PLATELET COUNT (AUTO) 224 K/uL (130-430); RED BLOOD CELL COUNT(AUTO) 3.71 MIL/uL (4.2-6.2); RED CELL DISTRIBUTION WIDTH 13.6 % (9.0-15.0); WHITE BLOOD COUNT (AUTO) 5.3 K/uL (4.8-10.8)
[2021-08-18] MEDS: FAT EMULSIONS 250 ML IV SCH (20:45)
[2021-08-18] MEDS ORDERED: SODIUM PHOS IV SCH ×9 (21:00)
[2021-08-18] MEDS ORDERED: [UNRECOGNIZED DRUG - OTHER] IV SCH ×9 (21:00)
[2021-08-18] MEDS ORDERED: TPN PERIPHERAL IV SCH ×9 (21:00)
[2021-08-18] MEDS ORDERED: SODIUM CHLORIDE IV SCH ×9 (21:00)
[2021-08-18] MEDS: ENOXAPARIN SODIUM 30 MG/0.3 ML SYRINGE SUBCUT SCH (21:12)
[2021-08-19] VITALS: BP_SYST 101
[2021-08-19] MEDS ORDERED: MINERAL OIL 30 ML UDC PO ONE
[2021-08-19] MEDS: HYDROmorphone 2 MG/ML VIAL IVP PRN ×8 (00:30→22:23)
[2021-08-19] MEDS: PIPERACILLIN/TAZO 4.5GM/DEX-IS 100 ML IV SCH ×3 (05:16→22:22)
[2021-08-19] MEDS: IPRATROPIUM/ALBUTEROL SULFATE 3 ML AMPUL.NEB (DUONEB) INH SCH ×6 (06:17→23:24)
[2021-08-19 07:18] LABS: ALBUMIN 2.3 g/dL (3.4-4.8); CALCIUM 7.5 mg/dL (8.4-11.0); CREATININE 0.69 mg/dL (0.55-1.30); PHOSPHORUS 3.4 mg/dL (2.7-4.5); POTASSIUM 3.5 mmol/L (3.5-5.1); TOTAL BILIRUBIN 0.1 mg/dL (0.0-1.0)
[2021-08-19 08:00] VITALS: BP_SYST 135
[2021-08-19] MEDS: D5/0.45 NS 1,000 ML IV SCH (09:40)
[2021-08-19 11:49] VITALS: BP_SYST 112
[2021-08-19 12:00] VITALS: BP_SYST 115
[2021-08-19] MEDS: ONDANSETRON HCL 4 MG/2 ML VIAL IVP PRN ×2 (15:28→21:44)
[2021-08-19 16:00] VITALS: BP_SYST 105
[2021-08-19] MEDS ORDERED: PANTOPRAZOLE SODIUM 40 MG TAB PO ONE (18:30)
[2021-08-19] MEDS ORDERED: [UNRECOGNIZED DRUG - OTHER] IV SCH ×9 (21:00)
[2021-08-19] MEDS ORDERED: TPN PERIPHERAL IV SCH ×9 (21:00)
[2021-08-19] MEDS ORDERED: SODIUM CHLORIDE IV SCH ×9 (21:00)
[2021-08-19] MEDS: ENOXAPARIN SODIUM 30 MG/0.3 ML SYRINGE SUBCUT SCH (21:32)
[2021-08-19] MEDS: FAT EMULSIONS 250 ML IV SCH (21:33)
[2021-08-20] MEDS ORDERED: BACLOFEN 10 MG TABLET PO ONE
[2021-08-20] MEDS ORDERED: FUROSEMIDE 20 MG/2 ML VIAL IVP ONE
[2021-08-20] MEDS: IPRATROPIUM/ALBUTEROL SULFATE 3 ML AMPUL.NEB (DUONEB) INH SCH ×6 (03:00→23:14)
[2021-08-20 04:10] VITALS: BP_SYST 109
[2021-08-20] MEDS: HYDROmorphone 2 MG/ML VIAL IVP PRN ×5 (06:06→21:01)
[2021-08-20] MEDS: D5/0.45 NS 1,000 ML IV SCH ×2 (06:09→21:50)
[2021-08-20] MEDS: PIPERACILLIN/TAZO 4.5GM/DEX-IS 100 ML IV SCH ×3 (06:18→21:50)
[2021-08-20 07:44] LABS: ALBUMIN 2.2 g/dL (3.4-4.8); CALCIUM 7.3 mg/dL (8.4-11.0); CREATININE 0.65 mg/dL (0.55-1.30); PHOSPHORUS 3.5 mg/dL (2.7-4.5); POTASSIUM 3.4 mmol/L (3.5-5.1); TOTAL BILIRUBIN 0.2 mg/dL (0.0-1.0)
[2021-08-20 08:00] VITALS: BP_SYST 95
[2021-08-20] MEDS: PANTOPRAZOLE SODIUM 40 MG TAB PO SCH (09:10)
[2021-08-20 11:39] VITALS: BP_SYST 100
[2021-08-20] MEDS ORDERED: HYDROmorphone 2 MG/ML VIAL IVP PRN (11:45)
[2021-08-20] MEDS: ONDANSETRON HCL 4 MG/2 ML VIAL IVP PRN (13:36)
[2021-08-20 16:26] VITALS: BP_SYST 120
[2021-08-20] MEDS: METOCLOPRAMIDE HCL 10 MG/2 ML VIAL IVP PRN (16:42)
[2021-08-20] MEDS ORDERED: SODIUM CHLORIDE IV SCH ×10 (21:00)
[2021-08-20] MEDS ORDERED: TPN PERIPHERAL IV SCH ×10 (21:00)
[2021-08-20] MEDS ORDERED: [UNRECOGNIZED DRUG - OTHER] IV SCH ×10 (21:00)
[2021-08-20] MEDS: ENOXAPARIN SODIUM 30 MG/0.3 ML SYRINGE SUBCUT SCH (21:03)
[2021-08-20] MEDS: FAT EMULSIONS 250 ML IV SCH (21:12)
[2021-08-21] MEDS: HYDROmorphone 2 MG/ML VIAL IVP PRN ×6 (00:57→21:34)
[2021-08-21] MEDS: METOCLOPRAMIDE HCL 10 MG/2 ML VIAL IVP PRN ×2 (02:32→20:34)
[2021-08-21] MEDS: IPRATROPIUM/ALBUTEROL SULFATE 3 ML AMPUL.NEB (DUONEB) INH SCH ×6 (03:00→23:22)
[2021-08-21 04:05] VITALS: BP_SYST 104
[2021-08-21] MEDS: PIPERACILLIN/TAZO 4.5GM/DEX-IS 100 ML IV SCH ×3 (06:16→21:34)
[2021-08-21 08:32] LABS: ALBUMIN 1.9 g/dL (3.4-4.8); CALCIUM 7.3 mg/dL (8.4-11.0); CREATININE 0.71 mg/dL (0.55-1.30); PHOSPHORUS 3.2 mg/dL (2.7-4.5); POTASSIUM 3.6 mmol/L (3.5-5.1); TOTAL BILIRUBIN 0.2 mg/dL (0.0-1.0)
[2021-08-21] MEDS: PANTOPRAZOLE SODIUM 40 MG TAB PO SCH (08:45)
[2021-08-21] MEDS: ONDANSETRON HCL 4 MG/2 ML VIAL IVP PRN (08:46)
[2021-08-21 09:59] VITALS: BP_SYST 104
[2021-08-21] MEDS ORDERED: SODIUM CHLORIDE IV SCH ×20 (10:45→21:00)
[2021-08-21] MEDS ORDERED: [UNRECOGNIZED DRUG - OTHER] IV SCH ×20 (10:45→21:00)
[2021-08-21] MEDS ORDERED: TPN PERIPHERAL IV SCH ×20 (10:45→21:00)
[2021-08-21] MEDS ORDERED: SODIUM ACETATE IV SCH ×20 (10:45→21:00)
[2021-08-21] MEDS ORDERED: BISACODYL 10 MG/SUPPOSITORY RC ONE (11:30)
[2021-08-21 11:37] VITALS: BP_SYST 90
[2021-08-21] MEDS: D5/0.45 NS 1,000 ML IV SCH ×2 (14:20→21:03)
[2021-08-21 15:35] VITALS: BP_SYST 97
[2021-08-21 16:00] VITALS: BP_SYST 111
[2021-08-21] MEDS: FAT EMULSIONS 250 ML IV SCH (20:41)
[2021-08-21] MEDS: ENOXAPARIN SODIUM 30 MG/0.3 ML SYRINGE SUBCUT SCH (20:42)
[2021-08-21 23:15] VITALS: BP_SYST 106
[2021-08-22 00:45] VITALS: BP_SYST 98
[2021-08-22] MEDS: HYDROmorphone 2 MG/ML VIAL IVP PRN ×6 (01:29→20:52)
[2021-08-22] MEDS: IPRATROPIUM/ALBUTEROL SULFATE 3 ML AMPUL.NEB (DUONEB) INH SCH ×4 (03:00→15:00)
[2021-08-22] MEDS: METOCLOPRAMIDE HCL 10 MG/2 ML VIAL IVP PRN ×3 (05:38→20:46)
[2021-08-22] MEDS: PIPERACILLIN/TAZO 4.5GM/DEX-IS 100 ML IV SCH ×2 (06:53→13:24)
[2021-08-22] MEDS ORDERED: LEVOTHYROXINE SODIUM 0.1 MG VIAL IVP SCH (07:00)
[2021-08-22 07:48] LABS: ALBUMIN 1.9 g/dL (3.4-4.8); CALCIUM 7.3 mg/dL (8.4-11.0); CREATININE 0.66 mg/dL (0.55-1.30); FREE T4 (FREE THYROXINE) 0.2 ng/dl (0.8-1.5); PHOSPHORUS 2.9 mg/dL (2.7-4.5); POTASSIUM 3.5 mmol/L (3.5-5.1); THYROID STIMULATING HORMONE 90.59 uIu/mL (0.36-3.74); TOTAL BILIRUBIN 0.2 mg/dL (0.0-1.0)
[2021-08-22] MEDS: PANTOPRAZOLE SODIUM 40 MG TAB PO SCH (09:00)
[2021-08-22] MEDS: MINERAL OIL 30 ML UDC PO SCH (09:00)
[2021-08-22] MEDS: ONDANSETRON HCL 4 MG/2 ML VIAL IVP PRN ×2 (09:21→17:31)
[2021-08-22] MEDS ORDERED: GASTROGRAFIN 120 ML ONE (10:25)
[2021-08-22 11:50] VITALS: BP_SYST 98
[2021-08-22 18:07] VITALS: BP_SYST 116
[2021-08-22 20:00] VITALS: BP_SYST 119
[2021-08-22] MEDS: TPN PERIPHERAL IV SCH ×10 (20:56)
[2021-08-22] MEDS: [UNRECOGNIZED DRUG - OTHER] IV SCH ×10 (20:56)
[2021-08-22] MEDS: SODIUM ACETATE IV SCH ×10 (20:56)
[2021-08-22] MEDS: SODIUM CHLORIDE IV SCH ×10 (20:56)
[2021-08-22] MEDS: ENOXAPARIN SODIUM 30 MG/0.3 ML SYRINGE SUBCUT SCH (20:57)
[2021-08-22] MEDS: FAT EMULSIONS 250 ML IV SCH (20:57)
[2021-08-23] VITALS: BP_SYST 103
[2021-08-23] MEDS: IPRATROPIUM/ALBUTEROL SULFATE 3 ML AMPUL.NEB (DUONEB) INH SCH ×6 (00:05→23:33)
[2021-08-23] MEDS: D5/0.45 NS 1,000 ML IV SCH (01:17)
[2021-08-23] MEDS: HYDROmorphone 2 MG/ML VIAL IVP PRN ×6 (01:17→21:56)
[2021-08-23] MEDS: METOCLOPRAMIDE HCL 10 MG/2 ML VIAL IVP PRN (05:59)
[2021-08-23] MEDS: LEVOTHYROXINE SODIUM 0.1 MG VIAL IVP SCH ×2 (07:00→09:39)
[2021-08-23 07:14] LABS: ALBUMIN 1.9 g/dL (3.4-4.8); CALCIUM 7.3 mg/dL (8.4-11.0); CREATININE 0.74 mg/dL (0.55-1.30); PHOSPHORUS 3.3 mg/dL (2.7-4.5); POTASSIUM 3.8 mmol/L (3.5-5.1); TOTAL BILIRUBIN 0.2 mg/dL (0.0-1.0)
[2021-08-23 08:00] VITALS: BP_SYST 108
[2021-08-23] MEDS: PANTOPRAZOLE SODIUM 40 MG TAB PO SCH (09:00)
[2021-08-23] MEDS: MINERAL OIL 30 ML UDC PO SCH (09:00)
[2021-08-23] MEDS ORDERED: PANTOPRAZOLE SODIUM 40 MG/VIAL (PROTONIX) IVP ONE (09:30)
[2021-08-23] MEDS ORDERED: PANTOPRAZOLE SODIUM 40 MG/VIAL (PROTONIX) ONE (09:33)
[2021-08-23] MEDS: ONDANSETRON HCL 4 MG/2 ML VIAL IM PRN (17:52)
[2021-08-23 20:05] VITALS: BP_SYST 104
[2021-08-23] MEDS: TPN PERIPHERAL IV SCH ×10 (21:24)
[2021-08-23] MEDS: [UNRECOGNIZED DRUG - OTHER] IV SCH ×10 (21:24)
[2021-08-23] MEDS: SODIUM CHLORIDE IV SCH ×10 (21:24)
[2021-08-23] MEDS: SODIUM ACETATE IV SCH ×10 (21:24)
[2021-08-23] MEDS: FAT EMULSIONS 250 ML IV SCH (21:24)
[2021-08-23] MEDS: ENOXAPARIN SODIUM 30 MG/0.3 ML SYRINGE SUBCUT SCH (21:27)
[2021-08-24 01:59] VITALS: BP_SYST 117
[2021-08-24] MEDS: HYDROmorphone 2 MG/ML VIAL IVP PRN ×5 (02:42→21:02)
[2021-08-24] MEDS: ONDANSETRON HCL 4 MG/2 ML VIAL IM PRN (02:43)
[2021-08-24] MEDS: IPRATROPIUM/ALBUTEROL SULFATE 3 ML AMPUL.NEB (DUONEB) INH SCH ×5 (04:05→22:26)
[2021-08-24] MEDS: METOCLOPRAMIDE HCL 10 MG/2 ML VIAL IVP PRN ×2 (06:32→11:31)
[2021-08-24 07:47] LABS: ALBUMIN 1.8 g/dL (3.4-4.8); CALCIUM 7.4 mg/dL (8.4-11.0); CREATININE 0.72 mg/dL (0.55-1.30); PHOSPHORUS 3.5 mg/dL (2.7-4.5); POTASSIUM 3.7 mmol/L (3.5-5.1); TOTAL BILIRUBIN 0.2 mg/dL (0.0-1.0)
[2021-08-24] MEDS: PANTOPRAZOLE SODIUM 40 MG/VIAL (PROTONIX) IVP SCH (08:16)
[2021-08-24] MEDS: MINERAL OIL 30 ML UDC PO SCH (08:18)
[2021-08-24 08:27] VITALS: BP_SYST 92
[2021-08-24] MEDS: PANTOPRAZOLE SODIUM 40 MG TAB PO SCH (09:00)
[2021-08-24 12:00] VITALS: BP_SYST 122
[2021-08-24] MEDS ORDERED: NALOXONE HCL 0.4 MG/ML AMP (NARCAN) IVP PRN ×2 (12:15)
[2021-08-24] MEDS ORDERED: HYDROmorphone 2 MG TAB PO PRN (12:15)
[2021-08-24] MEDS ORDERED: OXYCODONE/ACETAMINOPHEN 5-325 TABLET PO PRN (12:15)
[2021-08-24] MEDS ORDERED: FUROSEMIDE 40 MG/4 ML VIAL IVP ONE (13:15)
[2021-08-24] MEDS: ONDANSETRON HCL 4 MG/2 ML VIAL IVP PRN (14:24)
[2021-08-24 16:00] VITALS: BP_SYST 108
[2021-08-24 20:00] VITALS: BP_SYST 90
[2021-08-24] MEDS: FAT EMULSIONS 250 ML IV SCH (21:00)
[2021-08-24] MEDS: [UNRECOGNIZED DRUG - OTHER] IV SCH ×10 (21:00)
[2021-08-24] MEDS: SODIUM ACETATE IV SCH ×10 (21:00)
[2021-08-24] MEDS: TPN PERIPHERAL IV SCH ×10 (21:00)
[2021-08-24] MEDS: ENOXAPARIN SODIUM 30 MG/0.3 ML SYRINGE SUBCUT SCH (21:00)
[2021-08-24] MEDS: SODIUM CHLORIDE IV SCH ×10 (21:00)
[2021-08-25] VITALS: BP_SYST 92
[2021-08-25] MEDS: IPRATROPIUM/ALBUTEROL SULFATE 3 ML AMPUL.NEB (DUONEB) INH SCH ×7 (00:24→23:00)
[2021-08-25] MEDS: HYDROmorphone 2 MG/ML VIAL IVP PRN ×6 (00:41→20:50)
[2021-08-25 04:00] VITALS: BP_SYST 98
[2021-08-25] MEDS: LEVOTHYROXINE SODIUM 0.1 MG VIAL IVP SCH (06:27)
[2021-08-25 07:36] LABS: ALBUMIN 1.9 g/dL (3.4-4.8); CALCIUM 7.2 mg/dL (8.4-11.0); CREATININE 0.85 mg/dL (0.55-1.30); PHOSPHORUS 3.7 mg/dL (2.7-4.5); POTASSIUM 4.7 mmol/L (3.5-5.1)
[2021-08-25 08:00] VITALS: BP_SYST 102
[2021-08-25 08:04] LABS: BASOPHILS % (AUTO) 0.6 % (0.0-2.0); EOSINOPHILS # (AUTO) 0.1 K/uL (0.0-0.4); EOSINOPHILS % (AUTO) 3.5 % (0.0-4.0); HEMATOCRIT 32.6 % (36-54); HEMOGLOBIN 10.9 g/dL (14.0-18.0); LYMPHOCYTES # (AUTO) 1.3 K/uL (1.0-5.5); LYMPHOCYTES % (AUTO) 33.9 % (20.5-51.5); MEAN CORPUSCULAR HEMOGLOBIN 31 pg (27-31); MEAN CORPUSCULAR HGB CONC 33 % (32-36); MEAN CORPUSCULAR VOLUME 92 fL (79.0-98.0); MONOCYTES # (AUTO) 0.8 K/uL (0.0-1.0); MONOCYTES % (AUTO) 20.9 % (1.7-9.3); NEUTROPHILS # (AUTO) 1.6 K/uL (1.8-7.7); NEUTROPHILS % (AUTO) 41.1 % (40.0-70.0); PLATELET COUNT (AUTO) 309 K/uL (130-430); RED BLOOD CELL COUNT(AUTO) 3.54 MIL/uL (4.2-6.2); RED CELL DISTRIBUTION WIDTH 13.3 % (9.0-15.0)
[2021-08-25] MEDS: PANTOPRAZOLE SODIUM 40 MG/VIAL (PROTONIX) IVP SCH (08:08)
[2021-08-25] MEDS: FUROSEMIDE 40 MG/4 ML VIAL IVP SCH ×2 (08:10→12:32)
[2021-08-25] MEDS: MINERAL OIL 30 ML UDC PO SCH (08:14)
[2021-08-25] MEDS: ONDANSETRON HCL 4 MG/2 ML VIAL IVP PRN ×4 (08:35→21:15)
[2021-08-25 08:39] LABS: WHITE BLOOD COUNT (AUTO) 3.8 K/uL (4.8-10.8)
[2021-08-25 09:01] LABS: TOTAL BILIRUBIN 0.2 mg/dL (0.0-1.0)
[2021-08-25 12:00] VITALS: BP_SYST 97
[2021-08-25 16:00] VITALS: BP_SYST 94
[2021-08-25 20:00] VITALS: BP_SYST 95
[2021-08-25] MEDS ORDERED: SODIUM CHLORIDE IV SCH ×10 (21:00)
[2021-08-25] MEDS ORDERED: SODIUM ACETATE IV SCH ×10 (21:00)
[2021-08-25] MEDS ORDERED: [UNRECOGNIZED DRUG - OTHER] IV SCH ×10 (21:00)
[2021-08-25] MEDS ORDERED: TPN PERIPHERAL IV SCH ×10 (21:00)
[2021-08-25] MEDS: FAT EMULSIONS 250 ML IV SCH (21:09)
[2021-08-25] MEDS: ENOXAPARIN SODIUM 30 MG/0.3 ML SYRINGE SUBCUT SCH (21:12)
[2021-08-26 00:43] VITALS: BP_SYST 92
[2021-08-26] MEDS: HYDROmorphone 2 MG/ML VIAL IVP PRN ×7 (00:55→23:05)
[2021-08-26] MEDS: ONDANSETRON HCL 4 MG/2 ML VIAL IVP PRN ×2 (01:23→05:23)
[2021-08-26] MEDS: IPRATROPIUM/ALBUTEROL SULFATE 3 ML AMPUL.NEB (DUONEB) INH SCH ×6 (03:00→23:44)
[2021-08-26] MEDS: LEVOTHYROXINE SODIUM 0.1 MG VIAL IVP SCH (06:28)
[2021-08-26 08:00] VITALS: BP_SYST 99
[2021-08-26] MEDS: FUROSEMIDE 40 MG/4 ML VIAL IVP SCH ×2 (08:00→12:00)
[2021-08-26] MEDS: CHOLECALCIFEROL (VITAMIN D3) 5,000 UNIT TABLET PO SCH (09:00)
[2021-08-26 09:20] LABS: BASOPHILS % (AUTO) 0.5 % (0.0-2.0); EOSINOPHILS # (AUTO) 0.1 K/uL (0.0-0.4); EOSINOPHILS % (AUTO) 3.1 % (0.0-4.0); HEMATOCRIT 35.1 % (36-54); HEMOGLOBIN 11.6 g/dL (14.0-18.0); LYMPHOCYTES % (AUTO) 25.5 % (20.5-51.5); MEAN CORPUSCULAR HEMOGLOBIN 31 pg (27-31); MEAN CORPUSCULAR HGB CONC 33 % (32-36); MEAN CORPUSCULAR VOLUME 92 fL (79.0-98.0); MONOCYTES # (AUTO) 0.7 K/uL (0.0-1.0); MONOCYTES % (AUTO) 18.4 % (1.7-9.3); NEUTROPHILS % (AUTO) 52.5 % (40.0-70.0); PLATELET COUNT (AUTO) 307 K/uL (130-430); RED CELL DISTRIBUTION WIDTH 13.4 % (9.0-15.0); WHITE BLOOD COUNT (AUTO) 3.7 K/uL (4.8-10.8)
[2021-08-26] MEDS: MINERAL OIL 30 ML UDC PO SCH (09:44)
[2021-08-26] MEDS: PANTOPRAZOLE SODIUM 40 MG/VIAL (PROTONIX) IVP SCH (09:44)
[2021-08-26 09:51] LABS: CALCIUM 7.7 mg/dL (8.4-11.0); CREATININE 0.84 mg/dL (0.55-1.30); PHOSPHORUS 3.5 mg/dL (2.7-4.5); POTASSIUM 4.9 mmol/L (3.5-5.1); TOTAL BILIRUBIN 0.2 mg/dL (0.0-1.0)
[2021-08-26 12:46] VITALS: BP_SYST 116
[2021-08-26] MEDS: METOCLOPRAMIDE HCL 10 MG/2 ML VIAL IVP PRN (14:37)
[2021-08-26] MEDS: HYDROcodone/ACETAMIN 5-325 MG TAB (NORCO/ VICODIN) PO PRN ×2 (15:37→21:14)
[2021-08-26 16:30] VITALS: BP_SYST 114
[2021-08-26 20:00] VITALS: BP_SYST 106
[2021-08-26] MEDS ORDERED: [UNRECOGNIZED DRUG - OTHER] IV SCH ×9 (21:00)
[2021-08-26] MEDS ORDERED: SODIUM ACETATE IV SCH ×9 (21:00)
[2021-08-26] MEDS ORDERED: TPN PERIPHERAL IV SCH ×9 (21:00)
[2021-08-26] MEDS ORDERED: SODIUM CHLORIDE IV SCH ×9 (21:00)
[2021-08-26] MEDS: FAT EMULSIONS 250 ML IV SCH (21:12)
[2021-08-26] MEDS: ENOXAPARIN SODIUM 30 MG/0.3 ML SYRINGE SUBCUT SCH (21:13)
[2021-08-27] MEDS: METOCLOPRAMIDE HCL 10 MG/2 ML VIAL IVP PRN ×2 (02:23→12:53)
[2021-08-27] MEDS: IPRATROPIUM/ALBUTEROL SULFATE 3 ML AMPUL.NEB (DUONEB) INH SCH ×6 (03:00→23:07)
[2021-08-27] MEDS: HYDROmorphone 2 MG/ML VIAL IVP PRN ×5 (03:12→21:44)
[2021-08-27 03:27] VITALS: BP_SYST 91
[2021-08-27] MEDS: LEVOTHYROXINE SODIUM 0.1 MG VIAL IVP SCH (06:09)
[2021-08-27 07:58] VITALS: BP_SYST 91
[2021-08-27] MEDS ORDERED: D10W 1,000 ML IV SCH (08:00)
[2021-08-27] MEDS: FUROSEMIDE 40 MG/4 ML VIAL IVP SCH ×2 (08:00→12:53)
[2021-08-27] MEDS: PANTOPRAZOLE SODIUM 40 MG/VIAL (PROTONIX) IVP SCH (08:27)
[2021-08-27] MEDS: MINERAL OIL 30 ML UDC PO SCH (09:00)
[2021-08-27] MEDS: CHOLECALCIFEROL (VITAMIN D3) 5,000 UNIT TABLET PO SCH (09:00)
[2021-08-27 09:49] LABS: ALBUMIN 2.1 g/dL (3.4-4.8); CALCIUM 7.4 mg/dL (8.4-11.0); CREATININE 0.93 mg/dL (0.55-1.30); PHOSPHORUS 3.7 mg/dL (2.7-4.5); POTASSIUM 4.1 mmol/L (3.5-5.1); TOTAL BILIRUBIN 0.3 mg/dL (0.0-1.0)
[2021-08-27] MEDS: ONDANSETRON HCL 4 MG/2 ML VIAL IVP PRN ×3 (10:22→21:41)
[2021-08-27 16:45] VITALS: BP_SYST 104
[2021-08-27] MEDS: HYDROcodone/ACETAMIN 5-325 MG TAB (NORCO/ VICODIN) PO PRN (19:04)
[2021-08-27 20:37] VITALS: BP_SYST 104
[2021-08-27] MEDS ORDERED: SODIUM CHLORIDE IV SCH ×10 (21:00)
[2021-08-27] MEDS ORDERED: [UNRECOGNIZED DRUG - OTHER] IV SCH ×10 (21:00)
[2021-08-27] MEDS ORDERED: TPN PERIPHERAL IV SCH ×10 (21:00)
[2021-08-27] MEDS ORDERED: SODIUM ACETATE IV SCH ×10 (21:00)
[2021-08-27] MEDS: FAT EMULSIONS 250 ML IV SCH (21:52)
[2021-08-27] MEDS: ENOXAPARIN SODIUM 30 MG/0.3 ML SYRINGE SUBCUT SCH (21:53)
[2021-08-28] MEDS: ONDANSETRON HCL 4 MG/2 ML VIAL IVP PRN ×4 (01:33→20:28)
[2021-08-28] MEDS: HYDROmorphone 2 MG/ML VIAL IVP PRN ×5 (01:34→20:28)
[2021-08-28] MEDS: IPRATROPIUM/ALBUTEROL SULFATE 3 ML AMPUL.NEB (DUONEB) INH SCH ×6 (03:00→23:14)
[2021-08-28 07:10] LABS: ALBUMIN 2.2 g/dL (3.4-4.8); CALCIUM 8.1 mg/dL (8.4-11.0); CREATININE 0.95 mg/dL (0.55-1.30); PHOSPHORUS 3.6 mg/dL (2.7-4.5); POTASSIUM 4.3 mmol/L (3.5-5.1); TOTAL BILIRUBIN 0.2 mg/dL (0.0-1.0)
[2021-08-28] MEDS: LEVOTHYROXINE SODIUM 0.1 MG VIAL IVP SCH (07:16)
[2021-08-28 08:15] VITALS: BP_SYST 92
[2021-08-28] MEDS: MINERAL OIL 30 ML UDC PO SCH (08:43)
[2021-08-28] MEDS: PANTOPRAZOLE SODIUM 40 MG/VIAL (PROTONIX) IVP SCH (08:43)
[2021-08-28] MEDS: FUROSEMIDE 40 MG/4 ML VIAL IVP SCH ×2 (08:43→12:22)
[2021-08-28] MEDS: CHOLECALCIFEROL (VITAMIN D3) 5,000 UNIT TABLET PO SCH (08:44)
[2021-08-28] MEDS: METOCLOPRAMIDE HCL 10 MG/2 ML VIAL IVP PRN (08:44)
[2021-08-28] MEDS: HYDROcodone/ACETAMIN 5-325 MG TAB (NORCO/ VICODIN) PO PRN ×2 (08:45→12:57)
[2021-08-28 12:18] VITALS: BP_SYST 94
[2021-08-28 16:03] VITALS: BP_SYST 94
[2021-08-28 20:00] VITALS: BP_SYST 98
[2021-08-28] MEDS ORDERED: NA PHOS IV SCH ×9 (21:00)
[2021-08-28] MEDS ORDERED: SODIUM CHLORIDE IV SCH ×9 (21:00)
[2021-08-28] MEDS ORDERED: TPN PERIPHERAL IV SCH ×9 (21:00)
[2021-08-28] MEDS ORDERED: [UNRECOGNIZED DRUG - OTHER] IV SCH ×9 (21:00)
[2021-08-28] MEDS: ENOXAPARIN SODIUM 30 MG/0.3 ML SYRINGE SUBCUT SCH (21:48)
[2021-08-28] MEDS: FAT EMULSIONS 250 ML IV SCH (21:50)
[2021-08-29] VITALS: BP_SYST 101
[2021-08-29] MEDS: HYDROmorphone 2 MG/ML VIAL IVP PRN ×5 (00:32→21:00)
[2021-08-29] MEDS: IPRATROPIUM/ALBUTEROL SULFATE 3 ML AMPUL.NEB (DUONEB) INH SCH ×5 (03:00→18:57)
[2021-08-29] MEDS: ONDANSETRON HCL 4 MG/2 ML VIAL IVP PRN ×3 (05:48→16:49)
[2021-08-29] MEDS: LEVOTHYROXINE SODIUM 0.1 MG VIAL IVP SCH (06:31)
[2021-08-29 07:39] LABS: ALANINE AMINOTRANSFERASE 25 U/L (12-78); ALBUMIN 1.8 g/dL (3.4-4.8); ASPARTATE AMINOTRANSFERASE 18 U/L (10-37); CALCIUM 7.7 mg/dL (8.4-11.0); CHLORIDE 101 mmol/L (98-107); GLUCOSE 107 mg/dL (70-99); PHOSPHORUS 3.3 mg/dL (2.7-4.5); POTASSIUM 3.7 mmol/L (3.5-5.1); SODIUM SERUM 136 mmol/L (136-145); TOTAL BILIRUBIN 0.2 mg/dL (0.0-1.0); UREA NITROGEN, BLOOD 24 mg/dL (8-21)
[2021-08-29] MEDS: CHOLECALCIFEROL (VITAMIN D3) 5,000 UNIT TABLET PO SCH (07:41)
[2021-08-29] MEDS: PANTOPRAZOLE SODIUM 40 MG/VIAL (PROTONIX) IVP SCH (07:41)
[2021-08-29] MEDS: HYDROcodone/ACETAMIN 5-325 MG TAB (NORCO/ VICODIN) PO PRN (07:41)
[2021-08-29] MEDS: MINERAL OIL 30 ML UDC PO SCH (07:41)
[2021-08-29] MEDS: FUROSEMIDE 40 MG/4 ML VIAL IVP SCH ×2 (07:41→11:09)
[2021-08-29] MEDS: METOCLOPRAMIDE HCL 10 MG/2 ML VIAL IVP PRN ×2 (07:41→20:11)
[2021-08-29 08:14] LABS: ANION GAP < 3 (5-15); GFR AFRICAN AMERICAN 109 mL/min (>90)
[2021-08-29 08:15] VITALS: BP_SYST 109
[2021-08-29 11:32] VITALS: BP_SYST 103
[2021-08-29 15:31] VITALS: BP_SYST 111
[2021-08-29 19:35] VITALS: BP_SYST 118
[2021-08-29] MEDS ORDERED: NA PHOS IV SCH ×18 (21:00)
[2021-08-29] MEDS ORDERED: [UNRECOGNIZED DRUG - OTHER] IV SCH ×18 (21:00)
[2021-08-29] MEDS ORDERED: TPN PERIPHERAL IV SCH ×18 (21:00)
[2021-08-29] MEDS ORDERED: SODIUM CHLORIDE IV SCH ×18 (21:00)
== END 2021-08-29 21:30 | disposition short-term general hospital (02) | DRG 335 ==
LOC: SED 20:05 → SMU 23:45 → OBSVTOIN 08-08 09:20 → STU 08-09 18:47 → SIC 08-09 20:48 → STU 08-11 16:00 → SMU 08-12 10:21
PROVIDERS: ADMIT Internal Medicine Hospice and Palliative Medicine; ATTEND Internal Medicine Hospice and Palliative Medicine
PROC: 0DNU0ZZ Release Omentum, Open Approach (ICD-10-PCS; 2021-08-09)
PROC: 5A09357 Assistance with Respiratory Ventilation, Less than 24 Consecutive Hours, Continuous Positive Airway Pressure (ICD-10-PCS; 2021-08-09)
PROC: 0DN80ZZ Release Small Intestine, Open Approach (ICD-10-PCS; principal; 2021-08-09 17:10)
PROC: 5A09357 Assistance with Respiratory Ventilation, Less than 24 Consecutive Hours, Continuous Positive Airway Pressure (ICD-10-PCS; 2021-08-10)
PROC: 02HV33Z Insertion of Infusion Device into Superior Vena Cava, Percutaneous Approach (ICD-10-PCS; 2021-08-10)
PROC: B548ZZA Ultrasonography of Superior Vena Cava, Guidance (ICD-10-PCS; 2021-08-10)
PROC: 5A09357 Assistance with Respiratory Ventilation, Less than 24 Consecutive Hours, Continuous Positive Airway Pressure (ICD-10-PCS; 2021-08-12)
PROC: 5A09357 Assistance with Respiratory Ventilation, Less than 24 Consecutive Hours, Continuous Positive Airway Pressure (ICD-10-PCS; 2021-08-13)
PROC: 5A09357 Assistance with Respiratory Ventilation, Less than 24 Consecutive Hours, Continuous Positive Airway Pressure (ICD-10-PCS; 2021-08-14)
PROC: 5A09357 Assistance with Respiratory Ventilation, Less than 24 Consecutive Hours, Continuous Positive Airway Pressure (ICD-10-PCS; 2021-08-15)
PROC: 5A09357 Assistance with Respiratory Ventilation, Less than 24 Consecutive Hours, Continuous Positive Airway Pressure (ICD-10-PCS; 2021-08-16)
PROC: 5A09357 Assistance with Respiratory Ventilation, Less than 24 Consecutive Hours, Continuous Positive Airway Pressure (ICD-10-PCS; 2021-08-17)
PROC: 5A09357 Assistance with Respiratory Ventilation, Less than 24 Consecutive Hours, Continuous Positive Airway Pressure (ICD-10-PCS; 2021-08-18)
PROC: 5A09357 Assistance with Respiratory Ventilation, Less than 24 Consecutive Hours, Continuous Positive Airway Pressure (ICD-10-PCS; 2021-08-20)
PROC: 5A09357 Assistance with Respiratory Ventilation, Less than 24 Consecutive Hours, Continuous Positive Airway Pressure (ICD-10-PCS; 2021-08-21)
PROC: 5A09357 Assistance with Respiratory Ventilation, Less than 24 Consecutive Hours, Continuous Positive Airway Pressure (ICD-10-PCS; 2021-08-22)
PROC: 5A09357 Assistance with Respiratory Ventilation, Less than 24 Consecutive Hours, Continuous Positive Airway Pressure (ICD-10-PCS; 2021-08-23)
PROC: 5A09357 Assistance with Respiratory Ventilation, Less than 24 Consecutive Hours, Continuous Positive Airway Pressure (ICD-10-PCS; 2021-08-25)
PROC: 5A09357 Assistance with Respiratory Ventilation, Less than 24 Consecutive Hours, Continuous Positive Airway Pressure (ICD-10-PCS; 2021-08-26)
PROC: 5A09357 Assistance with Respiratory Ventilation, Less than 24 Consecutive Hours, Continuous Positive Airway Pressure (ICD-10-PCS; 2021-08-27)
PROC: 5A09357 Assistance with Respiratory Ventilation, Less than 24 Consecutive Hours, Continuous Positive Airway Pressure (ICD-10-PCS; 2021-08-28)
PROC: 5A09357 Assistance with Respiratory Ventilation, Less than 24 Consecutive Hours, Continuous Positive Airway Pressure (ICD-10-PCS; 2021-08-29)
DX: K56.600 Partial intestinal obstruction, unspecified as to cause (principal); K85.90 Acute pancreatitis without necrosis or infection, unspecified; J96.01 Acute respiratory failure with hypoxia; E43 Unspecified severe protein-calorie malnutrition; C34.90 Malignant neoplasm of unspecified part of unspecified bronchus or lung; F11.20 Opioid dependence, uncomplicated; K91.89 Other postprocedural complications and disorders of digestive system; R18.8 Other ascites; E87.1 Hypo-osmolality and hyponatremia; K56.7 Ileus, unspecified; G89.4 Chronic pain syndrome; R74.01 Elevation of levels of liver transaminase levels; K66.0 Peritoneal adhesions (postprocedural) (postinfection); I10 Essential (primary) hypertension; J43.9 Emphysema, unspecified; E88.09 Other disorders of plasma-protein metabolism, not elsewhere classified; E88.01 Alpha-1-antitrypsin deficiency; E55.9 Vitamin D deficiency, unspecified; Z20.822 Contact with and (suspected) exposure to COVID-19; D64.9 Anemia, unspecified; D72.819 Decreased white blood cell count, unspecified; E03.9 Hypothyroidism, unspecified; Z79.1 Long term (current) use of non-steroidal anti-inflammatories (NSAID); Z79.899 Other long term (current) drug therapy; Z79.890 Hormone replacement therapy; Z79.01 Long term (current) use of anticoagulants; Z98.84 Bariatric surgery status; Z90.49 Acquired absence of other specified parts of digestive tract; Z85.118 Personal history of other malignant neoplasm of bronchus and lung; Z68.22 Body mass index [BMI] 22.0-22.9, adult
CPT/HCPCS: 36415; 36600; 71045; 74018; 74250-TC; 76376; 80048; 80053; 80076; 81000; 82306; 82803-TC; 82962; 83690; 83735; 84100; 84439; 84443; 84478; 85025; 85610-TC; 85651-TC; 85730-TC; 86140; 86886; 86900; 86901; 87040; 87081; 93005; 93970; 94003; 94640; 94660; 94760; 96361; 96374; 96375; 96376; 97110-GP; 97112-GP; 97116-GP; 97163-GP; 97530-GP; 99285; C9113; G0378; J0610; J0690; J0780; J1170; J1650; J1940; J2060; J2250; J2270; J2405; J2543; J2704; J2765; J3010; J3475; J3480; J7030; J7131; Q9963